=== PATIENT | male | born 1935 | race Caucasian/White ===

== ENCOUNTER 2016-03-15 00:07 | Day surgery (SDC) | payer MEDICARE, OTHER ==
[~2016-03-15] VITALS: Ht 179.1 cm; Wt 90.0 kg
[2016-03-15] VITALS (10 sets, daily range): BP systolic 105–150; BP diastolic 58–72; PULSE 52–63; RESP 16–18; O2SAT 97–99
[~2016-03-15 00:07] MED LIST: ASPI325T32 PO; ATOR40TA69 PO; LOSA50TA37 PO; METO-272 PO; MULT-447 PO; NITR0.4T SL
[2016-03-15] MEDS ORDERED: diphenhydrAMINE 25 mg Capsule PO ONE ×2 (06:00→13:33)
[2016-03-15] MEDS ORDERED: Heparin 1,000 Units/500 mL NS Premix IV ONE (13:57)
[2016-03-15] MEDS ORDERED: Heparin 5,000 Units/500 mL NS Premix IV ONE (13:58)
[2016-03-15] MEDS ORDERED: fentaNYL-PF 50 mCg/mL 2 mL Inj ONE (13:58)
[2016-03-15] MEDS ORDERED: Heparin 1,000 Unit/mL 10 mL Inj ONE (13:58)
[2016-03-15] MEDS ORDERED: Nitroglycerin 50,000 mcg/250 mL D5W Premix IV ONE (13:58)
[2016-03-15] MEDS ORDERED: Verapamil 2.5 mg/mL 2 mL Inj ONE (13:59)
--- NOTE | 2016-03-15 15:23 | CS94 ---
[address] [address] DIAGNOSTIC CARDIAC CATHETERIZATION PATIENT: HUBER COLON : 1935 MR#: [id number] ADMIT: 03/15/2016 JOB ID: [id number] SERVICE DATE: 03/15/2016 PROCEDURE: 1. Selective right and left coronary angiography. 2. Left heart catheterization. INDICATION: Abnormal stress test, exertional angina. PROCEDURAL DETAILS: These are well enumerated in the procedure log to which the reader and the coders are referred. ANGIOGRAPHIC FINDINGS: 1. Moderate calcification of the coronary tree is noted on fluoroscopy. 2. Left main: No significant disease. 3. LAD in its ostium has a calcified disease. It appears to be eccentric and about 40%-50% in severity. 4. The first major diagonal has a tight 80% lesion. It is a bypassable vessel. The proximal to mid LAD involving the takeoff of this diagonal branch has a tubular 40%-50% stenosis. 5. Circumflex is nondominant. It has a proximal 90% followed by another 80% lesion. 6. The right coronary artery is totally occluded at its origin. The distal vessel is seen well via [id number] collaterals. This vessel appears to be bypassable as well. 7. Left heart catheterization revealed an LVEDP of 8. There was no gradient upon pullback and a hand injection suggested preserved contractility. Mild hypokinesis of the basal inferior wall is noted. In summary, this gentleman has severe coronary artery disease. I feel he would be best served by coronary artery bypass grafting. Of note, a subclavian angiogram was also performed during the procedure. He appears to have a tight ostial right common carotid disease. I will be getting a carotid duplex study on this gentleman.
--- NOTE | 2016-03-15 15:36 | NUR ---
Admitted today for a heart cath by Dr Aceves. Returned to [facility] post heart cath with a radial TR band on the Right wrist with 9cc of air in cuff. Pain free currently. Patient and patient's , "Ronna" have spoken with Dr Aceves - patient advised to have a CABG. Plan to go to [place] [facility] for procedure with Dr Althea Villeda, Dr Aceves organizing appointment for surgical consult and intervention.
--- NOTE | 2016-03-15 18:57 | NUR ---
Discharge: Pt d/c'd home at 1854. Given d/c instructions, care notes, care of TR band and post sedation, medication list, and f/u appointment information; and patient both state understanding to d/c instructions. IV catheters d/c'd intact from bilateral AC's, no redness or swelling noted at either IV insertion site, pt tolerated well. TR band began to be deflated at 1750, fully deflated by 1830, good pleth on pulse ox still being red, no bleeding at site, 2x2 with Tegaderm applied to R wrist site, dsg C/D/I at time of d/c home. Pt refused a w/c and ambulated off unit with all of his belongings and his at 185, escorted out to personal vehicle by staff.
== END 2016-03-15 23:59 | disposition home or self-care (01) ==
LOC: SOUO 00:07
PROVIDERS: ATTEND Internal Medicine Cardiovascular Disease
DX: I25.118 Atherosclerotic heart disease of native coronary artery with other forms of angina pectoris (principal); I25.82 Chronic total occlusion of coronary artery; I10 Essential (primary) hypertension; E78.5 Hyperlipidemia, unspecified; Z86.73 Personal history of transient ischemic attack (TIA), and cerebral infarction without residual deficits; G47.33 Obstructive sleep apnea (adult) (pediatric); Z79.82 Long term (current) use of aspirin; Z98.890 Other specified postprocedural states
CPT/HCPCS: 93458; 99152; C1769; C1887; C1894; J1644; J2250; J3010; Q9967